=== PATIENT | female | born 1960 | race Caucasian/White ===

== ENCOUNTER 2017-09-24 17:28 | Emergency (ER) | payer OTHER ==
[~2017-09-24] VITALS: Ht 172.7 cm; Wt 95.3 kg
--- NOTE | 2017-09-24 17:40 | ED CARDIAC/CP/PALPITATIONS ---
History of Present Illness General Chief Complaint: General Adult Stated Complaint: SENT BY DR. MARTINEZ FOR CARIDAC CHECK Source: patient, old records Exam Limitations: no limitations Vital Signs & Intake/Output Vital Signs & Intake/Output ED Intake and Output 09/25 0000 09/24 1200 Intake Total 400 Output Total Balance 400 Intake, Oral 400 Patient 210 lb Weight Weight Estimated Measurement Method Allergies Coded Allergies: chocolate flavor (Intermediate, STAPH INFECTIONS 09/24/17) Triage Note: RECEIVED 56 YO FEMALE SENT TO ED BY DR MARTINEZ FOR CHEST PRESSURE INTERMITTENTLY X 2 WEEKS, WORSE TODAY.PT WITH HX OF Anna MARTINEZ REQUESTING TROPONIN AND TO BE CALLED BY PROVIDER ON HIS CELL PHONE. PT ALSO REPORTS SOME SOB AND DIZZINESS Triage Nurses Notes Reviewed? yes Onset: Abrupt Duration: day(s): (1), constant Timing: recent history Quality/Severity: moderate (ACHING) Location: central Radiation: no radiation Activities at Onset: none Nitro Today/Relief: no nitro taken today Aspirin Today: 81 mg x 1, provided by ED Associated Symptoms: DENIES HPI: 56-year-old female history of diabetes presents to the ER for evaluation sent in by value stream manager Dr. Martinez for evaluation. The patient has had intermittent left sided chest pain for the past 2 weeks worse today. No history of shortness of breath cough or pain with inspiration. She reports history of similar pain episodes in the past at which time she had a negative stress test. She states this was about 3 or 4 years ago. No recent changes in her medication other than her Synthroid was increased. No abdominal pain nausea vomiting diarrhea (Bro Nathan) Past History Travel History Traveled to [place] past 21 day No Medical History Any Pertinent Medical History? see below for history Endocrine: diabetes Surgical History Surgical History: non-contributory Family History Hx Contributory? No (Bro Nathan) Review of Systems Review of Systems Constitutional: Reports: see HPI. Comments Review of systems: See HPI, All other systems negative. Constitutional, no chills no fever HEENT: no sore throat no congestion Cardiovascular: chest pain , no palpitation Skin: no rashes, no change in skin Respiratory: No dyspnea no cough no sputum GI: No nausea no vomiting, no diarrhea Muscle skeletal: No joint pain, no back pain, no neck pain, Neurologic: , no headache Heme/endocrine: No bruising Immunology: No lymphadenopathy (Bro Nathan) Physical Exam Physical Exam General Appearance: well developed/nourished, no apparent distress, alert, awake , comfortable Cardiovascular: regular rate/rhythm Comments: Well-developed well-nourished person in no acute distress HEENT: Normal EENT exam; PERRL, EOMI,HEAD is atraumatic. moist mucous membranes. Neck: Supple, normal range of motion without Back: Full range of motion Cardiovascular: Regular rate and rhythms no murmurs rubs or gallops, normal JVP Respiratory: Chest nontender.There were no bony deformities, no asymmetry. No respiratory distress. Patient speaking in full complete sentences. Breath sounds clear to auscultation bilaterally: NO W/R/R Abdomen: Soft, nontender nondistended, no appreciable organomegaly. Normal bowel sounds. No rebound/guarding, Extremity: No edema, full range of motion of extremities Neuro: Alert oriented x3, motor sensory normal. There were no obvious focal neurologic abnormalities. Skin: No appreciable rash on exposed skin, skin is warm and dry. Psych: Mood and affect is normal, memory and judgment is normal. Core Measures ACS in differential dx? Yes CVA/TIA Diagnosis No Sepsis Present: No Sepsis Focused Exam Completed? No (Bro Nathan) Progress Differential Diagnosis: AMI, aortic dissection, atrial fibrillation, cholecystitis, CHF/pulm edema Plan of Care: Orders Procedure Date/time Status Heart Healthy Diet 09/25 B Active TROPONIN LEVEL 09/24 173 Complete D-DIMER 09/24 1735 Complete COMPREHENSIVE METABOLIC PANEL 09/24 173 Complete CBC WITHOUT DIFFERENTIAL 09/24 173 Complete EKG 09/24 1735 Active Laboratory Tests 09/24/17 1750: Anion Gap 18 H, Estimated GFR > 60, BUN/Creatinine Ratio 17.1, Glucose 79, Calcium 9.8, Total Bilirubin 0.8, AST 20, ALT 22, Alkaline Phosphatase 69, Troponin I < 0.01, Total Protein 7.8, Albumin 4.6, Globulin 3.2, Albumin/ Globulin Ratio 1.4, D-Dimer High Sensitivty < 200, CBC w Diff NO MAN DIFF REQ, RBC 4.62, MCV 84.8, MCH 27.5, MCHC 32.5 L, RDW 16.0 H, MPV 8.9, Gran % 63.7, Lymphocytes % 26.3, Monocytes % 8.0, Eosinophils % 1.6, Basophils % 0.4, Absolute Granulocytes 5.4, Absolute Lymphocytes 2.2, Absolute Monocytes 0.7 H, Absolute Eosinophils 0.1, Absolute Basophils 0 Patient medicated with aspirin discussed Dr. Baugh labs ordered resting in no acute distress at this time Case discussed with Dr. Martinez he is okay with only doing one set he will follow-up with the patient for outpatient stress test and echocardiogram next week I discussed with the patient at length all of their results. I had an extensive conversation regarding need for close follow up with their primary care physician/cardiology this week as well as return precautions. I answered all of their questions, they feel comfortable with the plan and follow-up care. Diagnostic Imaging: Viewed by Me: Radiology Read. Discussed w/RAD: Radiology Read. Radiology Impression: PATIENT: JANIS JURADO PRESENT AGE: 56 PATIENT ACCOUNT NO: [id number] : 61 LOCATION: [facility] ORDERING PHYSICIAN: Robby JOLLY SERVICE DATE: 09/24/17 EXAM TYPE: RAD - XRY-CHEST XRAY, TWO VIEWS EXAMINATION: CHEST 2 VIEWS CLINICAL INFORMATION: Chest pain, shortness of breath. COMPARISON: None. TECHNIQUE: PA and lateral views of the chest were obtained. FINDINGS: The cardiac silhouette is not enlarged. The mediastinal and hilar contours are unremarkable. There are neither pleural effusions nor pneumothoraces. There are no consolidations. There is mild S- shaped curvature to the thoracic spine. The osseous structures are otherwise unremarkable. IMPRESSION: No evidence for acute disease. DICTATED BY: Andi Forman MD DATE/TIME DICTATED:09/24/171812 ART SALES CONSULTANT:JOHNNY DATE/TIME TRANSCRIBED:09/24/171812 CONFIDENTIAL, DO NOT COPY WITHOUT APPROPRIATE AUTHORIZATION. <Electronically signed in Other Vendor System> SIGNED BY: Andi Forman MD 09/24/171816 Initial ED EKG: normal QRS complex, normal sinus rhythm, NSR, PVC (Bro Nathan) Departure Departure Time of Disposition: 1849 Disposition: HOME OR SELF CARE Condition: Stable Clinical Impression Primary Impression: Atypical chest pain Referrals: Munir Martinez MD Additional Instructions: Follow-up with Dr. Martinez. Continue taking your medications as prescribed. Return to ER with any concerns. Departure Forms: Customer Survey General Discharge Information (Bro Nathan) PA/ATTENDANT HONOR BAR Co-Sign Statement Statement: ED Attending supervision documentation- [] I saw and evaluated the patient. I have also reviewed all the pertinent lab results and diagnostic results. I agree with the findings and the plan of care as documented in the PA's/ATTENDANT HONOR BAR's documentation. [X] I have reviewed the ED Record and agree with the PA's/ATTENDANT HONOR BAR's documentation. [] Additions or exceptions (if any) to the PAs/ATTENDANT HONOR BAR's note and plan are summarized below: [] (Amauri CARPENTER,Thomas Perez) Critical Care Note Critical Care Note Critical Care Time: non-applicable (Bro Nathan)
[2017-09-24 18:07] LABS: ABSOLUTE BASOPHIL COUNT 0 /CUMM (0.0-0.2); ABSOLUTE EOSINOPHIL COUNT 0.1 /CUMM (0.0-0.7); ABSOLUTE GRANULOCYTE CT 5.4 /CUMM (1.4-6.5); ABSOLUTE LYMPH COUNT 2.2 /CUMM (1.2-3.4); ABSOLUTE MONOCYTE COUNT 0.7 /CUMM (0.10-0.60); BASOPHIL % 0.4 % (0.0-2.0); EOSINOPHIL % 1.6 % (0-5); GRANULOCYTE % 63.7 % (42.2-75.2); HEMATOCRIT 39.2 % (37-47); MEAN CORPUSCULAR HGB 27.5 PG (27.0-31.0); MEAN CORPUSCULAR HGB CONC 32.5 G/DL (33.0-37.0); MEAN CORPUSCULAR VOLUME 84.8 FL (81.0-99.0); MEAN PLATELET VOLUME 8.9 FL (7.4-10.4); PLATELET COUNT 464 /CUMM (130-400); RED BLOOD CELL CT 4.62 /CUMM (4.20-5.40); WHITE BLOOD CELL COUNT 8.4 /CUMM (4.8-10.8)
--- NOTE | 2017-09-24 18:17 | RADIOLOGY REPORT ---
EXAMINATION: CHEST 2 VIEWS CLINICAL INFORMATION: Chest pain, shortness of breath. COMPARISON: None. TECHNIQUE: PA and lateral views of the chest were obtained. FINDINGS: The cardiac silhouette is not enlarged. The mediastinal and hilar contours are unremarkable. There are neither pleural effusions nor pneumothoraces. There are no consolidations. There is mild S-shaped curvature to the thoracic spine. The osseous structures are otherwise unremarkable. IMPRESSION: No evidence for acute disease.
[2017-09-24 19:08] VITALS: BP 144/88
== END 2017-09-24 19:08 ==
LOC: ERH 17:28
PROVIDERS: Physician Assistant Medical
DX: R07.89 Other chest pain (principal)
CPT/HCPCS: 71046; 93005; 93010; J3490